=== PATIENT | male | born 1955 | race Caucasian/White ===

== ENCOUNTER 2017-07-28 11:07 | Observation (INO) | payer OTHER ==
[2017-07-28] VITALS (9 sets, daily range): BP systolic 154–230; BP diastolic 87–124; PULSE 72–96; RESP 14–18; TEMP 97.6–98.2; O2SAT 98–100
[~2017-07-28] VITALS: Ht 177.8 cm; Wt 78.0 kg
[~2017-07-28 11:07] MED LIST: HYDR25TA5 PO; POTA10CA PO; VITA500012 PO
--- NOTE | 2017-07-28 11:23 | PD ---
HPI Chief Complaint: Dizziness Time Seen by Provider: 11:19 Travel History International Travel<30 days: No Contact w/Intl Traveler<30days: No Traveled to known affect area: No History of Present Illness HPI 61-year-old male with PMH of hypertension, CKD, current smoker presents [place] the ED via EMS from [place] for evaluation of hypertension. Patient states he had a scheduled appointment at the [place], was going to discuss going to rehab for recent alcohol abuse. He states that he did not take his hydrochlorothiazide this morning "because I was going to go on the bus." He endorses episodic dizziness over the last "few days." He can identify no alleviating or exacerbating factors. He complains of dull bitemporal headache. He states that he has not taken anything because "the headaches are not that bad." He endorses vision changes, but states he went to the eye doctor yesterday and was told that he needs glasses. He denies chest pain, palpitations, shortness of breath, cough, abdominal pain, nausea, vomiting, changes in bowel habits, dysuria, back pain, lower extremity edema. He endorses heavy drinking over the last month, characterized as "1/2 L of vodka a few times a week." He denies history of chronic alcoholism. He denies suicidal or homicidal ideation. PFSH Past Medical History Cardiovascular Problems: Yes Congestive Heart Failure: Yes Diminished Hearing: No Hypertension: Yes Thyroid Disease: Yes Past Surgical History Abdominal Surgery: Yes (HERNIA REPAIR 2006) Joint Replacement: Yes (RIGHT HIP SURGERY FROM FX) Other Surgery: Yes (RIGHT AND LEFT KNEE ARTHROSCOPY) Social History Alcohol Use: Yes Tobacco Use: Yes Substance Use: No (DENIES) Allergies-Medications (Allergen,Severity, Reaction): Coded Allergies: No Known Allergies (Verified Allergy, Unknown, 07/28/17) Reported Meds & Prescriptions Reported Meds & Active Scripts Active Reported Allopurinol 100 Mg Tab 100 Mg PO DAILY [Potassium Otc ] PO DAILY Hydrochlorothiazide 25 Mg Tab 25 Mg PO DAILY Review of Systems Except as stated in HPI: all other systems reviewed are Neg Physical Exam Narrative GENERAL: Well-nourished, well-developed white male no acute distress. SKIN: Focused skin assessment warm/dry. Abrasion of the left toe. Chronic venous stasis changes of bilateral lower extremities. HEAD: Normocephalic. Atraumatic. EYES: No scleral icterus. No injection or drainage. PERRLA. EOMI. NECK: Supple, trachea midline. No JVD or lymphadenopathy. CARDIOVASCULAR: Regular rate and rhythm without murmurs, gallops, or rubs. RESPIRATORY: Breath sounds clear and equal bilaterally. No accessory muscle use. GASTROINTESTINAL: Abdomen soft, non-tender, nondistended. Active bowel sounds. MUSCULOSKELETAL: No cyanosis, or edema. Moves extremities spontaneously. NEUROLOGICAL: Awake and alert. Cranial nerves II through XII intact. Motor and sensory grossly within normal limits. Five out of 5 muscle strength in all muscle groups. Normal speech. BACK: Nontender without obvious deformity. No CVA tenderness. Data Data Last Documented VS Vital Signs Date Time Temp Pulse Resp B/P (MAP) Pulse Ox O2 Delivery O2 Flow Rate FiO2 07/28/17 15:41 74 14 154/87 (109) 99 Room Air Orders Orders Electrocardiogram (07/28/17 11:19) Complete Blood Count With Diff (07/28/17 11:19) Comprehensive Metabolic Panel (07/28/17 11:19) Ckmb (Isoenzyme) Profile (07/28/17 11:19) Troponin I (07/28/17 11:19) Act Partial Throm Time (Ptt) (07/28/17 11:19) Prothrombin Time / Inr (Pt) (07/28/17 11:19) Urinalysis - C+S If Indicated (07/28/17 11:19) Chest, Single Ap (07/28/17 11:19) Ct Brain W/O Iv Contrast(Rout) (07/28/17 11:19) Ecg Monitoring (07/28/17 11:19) Iv Access Insert/Monitor (07/28/17 11:19) Oximetry (07/28/17 11:19) Sodium Chloride 0.9% Flush (Ns Flush) (07/28/17 11:30) Alcohol (Ethanol) (07/28/17 11:19) Drug Screen, Random Urine (07/28/17 11:19) Metoprolol Tartrate (Lopressor) (07/28/17 11:30) CKMB (07/28/17 11:35) CKMB% (07/28/17 11:35) Labetalol Inj (Trandate Inj) (07/28/17 14:15) Alcohol Withdrawal Asmt-Ciwa ONCE (07/28/17 15:09) Flumazenil Inj (Romazicon Inj) (07/28/17 15:15) Lorazepam (Ativan) (07/28/17 15:15) Lorazepam Inj (Ativan Inj) (07/28/17 15:15) Lorazepam (Ativan) (07/28/17 15:15) Lorazepam Inj (Ativan Inj) (07/28/17 15:15) Lorazepam Inj (Ativan Inj) (07/28/17 15:15) Lorazepam Inj (Ativan Inj) (07/28/17 15:15) Diet Heart Healthy (07/28/17 Dinner) Vital Signs (Adult) JUAN C.Q4H (07/28/17 15:45) Amlodipine (Norvasc) (07/28/17 17:00) Enalaprilat Inj (Vasotec Inj) (07/28/17 15:45) Basic Metabolic Panel (Bmp) (07/29/17 06:00) Case Management Consult (07/28/17 ) Admit Order (Ed Use Only) (07/28/17 15:47) Labs Laboratory Tests Test 07/28/17 11:35 07/28/17 14:16 White Blood Count 8.0 TH/MM3 Red Blood Count 3.93 MIL/MM3 Hemoglobin 12.9 GM/DL Hematocrit 38.2 % Mean Corpuscular Volume 97.4 FL Mean Corpuscular Hemoglobin 32.9 PG Mean Corpuscular Hemoglobin Concent 33.7 % Red Cell Distribution Width 16.0 % Platelet Count 202 TH/MM3 Mean Platelet Volume 8.4 FL Neutrophils (%) (Auto) 84.0 % Lymphocytes (%) (Auto) 9.9 % Monocytes (%) (Auto) 4.9 % Eosinophils (%) (Auto) 0.2 % Basophils (%) (Auto) 1.0 % Neutrophils # (Auto) 6.7 TH/MM3 Lymphocytes # (Auto) 0.8 TH/MM3 Monocytes # (Auto) 0.4 TH/MM3 Eosinophils # (Auto) 0.0 TH/MM3 Basophils # (Auto) 0.1 TH/MM3 CBC Comment DIFF FINAL Differential Comment Prothrombin Time 10.3 SEC Prothromb Time International Ratio 1.0 RATIO Activated Partial Thromboplast Time 24.8 SEC Blood Urea Nitrogen 28 MG/DL Creatinine 2.12 MG/DL Random Glucose 97 MG/DL Total Protein 7.7 GM/DL Albumin 3.9 GM/DL Calcium Level 8.9 MG/DL Alkaline Phosphatase 208 U/L Aspartate Amino Transf (AST/SGOT) 31 U/L Alanine Aminotransferase (ALT/SGPT) 17 U/L Total Bilirubin 1.1 MG/DL Sodium Level 139 MEQ/L Potassium Level 4.2 MEQ/L Chloride Level 107 MEQ/L Carbon Dioxide Level 22.0 MEQ/L Anion Gap 10 MEQ/L Estimat Glomerular Filtration Rate 32 ML/MIN Total Creatine Kinase 139 U/L Creatine Kinase MB 4.5 NG/ML Troponin I LESS THAN 0.02 NG/ML Ethyl Alcohol Level LESS THAN 3 MG/DL Urine Color YELLOW Urine Turbidity CLEAR Urine pH 6.0 Urine Specific [place] 1.014 Urine Protein 100 mg/dL Urine Glucose (UA) NEG mg/dL Urine Ketones NEG mg/dL Urine Occult Blood SMALL Urine Nitrite NEG Urine Bilirubin NEG Urine Urobilinogen LESS THAN 2.0 MG/DL Urine Leukocyte Esterase NEG Urine WBC 3 /hpf Urine Squamous Epithelial Cells 1 /hpf Urine Hyaline Casts 3 /lpf Urine Mucus FEW /lpf Microscopic Urinalysis Comment CULT NOT INDICATED Urine Opiates Screen NEG Urine Barbiturates Screen NEG Urine Amphetamines Screen NEG Urine Benzodiazepines Screen NEG Urine Cocaine Screen POS Urine Cannabinoids Screen POS MDM Medical Decision Making Medical Screen Exam Complete: Yes Emergency Medical Condition: Yes Differential Diagnosis Hypertension versus hypertensive urgency versus ICH versus alcohol withdrawal versus malingering versus other Narrative Course 61-year-old male with PMH of hypertension, CKD, current smoker presents to the ED via [place] for evaluation of hypertension, dizziness. He did not take his HCTZ this morning. He endorses episodic dizziness over the last "few days." He complains of dull bitemporal headache. He states that he has not taken anything because "the headaches are not that bad." He endorses heavy drinking over the last month, characterized as "1/2 L of vodka a few times a week." He denies history of chronic alcoholism. He denies suicidal or homicidal ideation. BP 230/119 on presentation. No focal neuro deficits on exam. Patient was administered daily dose of 25 mg HCTZ at the [place] before transfer. He was administered 25 mg metoprolol p.o. in the ED. EKG rate 82, sinus rhythm. [place] interval 154, QRS 98, QTC 4 2 ms. Normal axis. No acute ST changes. Reviewed by Dr. Fernandez. CXR: No acute disease. Cardiac enzymes negative 1. CT brain negative for acute process. CBC: WBC 8.0. Hemoglobin 12.9. INR 1.0. CMP: BUN 28, creatinine 2.12. Chronic per chart review. No culture indicated of the UA. Tox screen positive for cocaine, cannabinoids. Alcohol less than 3. On recheck blood pressure has not improved significantly. He is administered 20 mg labetalol IV. BP improved to 154/106. On recheck patient states dizziness has not resolved. I discussed observation admission with the patient. During this time we discussed his social situation. I told him that I would place him on CIWA protocol to avoid alcohol withdrawal. Patient states "I do not withdraw from alcohol." I asked him why he was seeking inpatient treatment from the [place] for alcoholism and he is unable to answer this question. Patient reveals to me that he became homeless today. Given his ongoing dizziness couple of hypertension will admit for observation. I spoke with Dr. Edmondson have agrees to accept the patient to the medicine service. Please see medicine notes for disposition. Lisa Wayne Jul 28, 2017 11:23
[2017-07-28] MEDS ORDERED: POTASSIUM OTC PO (11:24)
[2017-07-28] MEDS ORDERED: ALLO100T PO (11:24)
[2017-07-28] MEDS ORDERED: HYDROCHLOROTHIAZIDE 25 MG TAB PO ONE (11:30)
[2017-07-28] MEDS ORDERED: METOPROLOL TARTRATE 25 MG TAB PO ONE (11:30)
[2017-07-28 11:47] LABS: AUTOMATED NEUTROPHIL # 6.7 TH/MM3 (1.8-7.7); BASOPHIL # 0.1 TH/MM3 (0-0.2); EOSINOPHIL % 0.2 % (0.0-4.0); HEMATOCRIT 38.2 % (39.0-51.0); HEMOGLOBIN 12.9 GM/DL (13.0-17.0); LYMPH % 9.9 % (9.0-44.0); LYMPHOCYTE # 0.8 TH/MM3 (1.0-4.8); MEAN CELL VOLUME 97.4 FL (80.0-100.0); MEAN CORPUSCULAR HEMOGLOBIN 32.9 PG (27.0-34.0); MEAN CORPUSCULAR HGB CONC 33.7 % (32.0-36.0); MEAN PLATELET VOLUME 8.4 FL (7.0-11.0); MONO % 4.9 % (0.0-8.0); MONOCYTE # 0.4 TH/MM3 (0-0.9); PLATELET COUNT 202 TH/MM3 (150-450); RED BLOOD COUNT 3.93 MIL/MM3 (4.50-5.90)
[2017-07-28 11:56] LABS: PROTHROMBIN TIME - PATIENT 10.3 SEC (9.8-11.6)
--- NOTE | 2017-07-28 11:57 | RADRPT ---
EXAM DATE/TIME: 07/28/2017 11:29 [facility] COMPARISON: CHEST SINGLE AP, June 21, 2016, 20:25. INDICATIONS : [facility]. MEDICAL HISTORY : None. SURGICAL HISTORY : None. ENCOUNTER: Initial ACUITY: 1 day PAIN SCORE: 0/10 LOCATION: FINDINGS: A single view of the chest demonstrates the lungs to be symmetrically aerated without evidence of mas s, infiltrate or effusion. The cardiomediastinal contours are unremarkable. Osseous structures are intact. CONCLUSION: No acute disease. Shivam Jones MD FACR on July 28, 2017 at 11:54 Board Certified Radiologist. This report was verified electronically.
[2017-07-28 12:08] LABS: ALBUMIN 3.9 GM/DL (3.4-5.0); ALT (GPT) 17 U/L (12-78); AST (GOT) 31 U/L (15-37); BLOOD UREA NITROGEN 28 MG/DL (7-18); CALCIUM 8.9 MG/DL (8.5-10.1); CHLORIDE 107 MEQ/L (98-107); CREATININE 2.12 MG/DL (0.60-1.30); GLOMERULAR FILTRATION RATE 32 ML/MIN (>89); GLUCOSE,RANDOM 97 MG/DL (74-106); SODIUM (NA) 139 MEQ/L (136-145)
[2017-07-28 12:12] LABS: ALKALINE PHOSPHATASE 208 U/L (45-117); TOTAL BILIRUBIN ADULT 1.1 MG/DL (0.2-1.0); TOTAL PROTEIN 7.7 GM/DL (6.4-8.2); TROPONIN I LESS THAN 0.02 NG/ML (0.02-0.05)
--- NOTE | 2017-07-28 12:51 | RADRPT ---
EXAM DATE/TIME: 07/28/2017 12:31 [facility] COMPARISON: CT BRAIN W/O CONTRAST, June 30, 2017, 0:51. INDICATIONS : Dizziness, hypertension, blurred vision. RADIATION DOSE: 36.70 CTDIvol (mGy) MEDICAL HISTORY : Hypertension. Cardiovascular disease Congestive heart failure. SURGICAL HISTORY : None. ENCOUNTER: Initial ACUITY: 1 week PAIN SCALE: 2/10 LOCATION: Bilateral cranial TECHNIQUE: Multiple contiguous axial images were obtained of the head. Using automated exposure control and adj ustment of the mA and/or kV according to patient size, radiation dose was kept as low as reasonably a chievable to obtain optimal diagnostic quality images. DICOM format image data is available electro nically for review and comparison. FINDINGS: CEREBRUM: The ventricles are normal for age. No evidence of midline shift, mass lesion, hemorrhage or acute in farction. No extra-axial fluid collections are seen. POSTERIOR FOSSA: The cerebellum and brainstem are intact. The 4th ventricle is midline. The cerebellopontine angle i s unremarkable. EXTRACRANIAL: The visualized portion of the orbits is intact. SKULL: The calvaria is intact. No evidence of skull fracture. CONCLUSION: Negative for an acute process. Shivam Jones MD FACR on July 28, 2017 at 12:48 Board Certified Radiologist. This report was verified electronically.
[2017-07-28] MEDS: SODIUM CHLORIDE 0.9% FLUSH 10 ML FLUSH IVF PRN (14:05)
[2017-07-28] MEDS ORDERED: LABETALOL HCL 100 MG/20 ML VIAL IV PUSH ONE (14:15)
[2017-07-28 14:57] LABS: BILIRUBIN, URINE NEG (NEG); BLOOD, URINE SMALL (NEG); GLUCOSE,URINE NEG (NEG); HYALINE CAST, URINE 3 /lpf (RARE); KETONE, URINE NEG (NEG); MUCUS URINE FEW /lpf (OCC); NITRITE,URINE NEG (NEG); SQUAMOUS EPITHELIAL CELL URINE 1 /hpf (0-5); URINE COLOR YELLOW (YELLW/STRAW); URINE LEUKOCYTE ESTERASE NEG (NEG)
[2017-07-28] MEDS ORDERED: LORazepam 1 MG TAB PO PRN (15:15)
[2017-07-28] MEDS ORDERED: LORazepam 2 MG TAB PO PRN (15:15)
[2017-07-28] MEDS ORDERED: FLUMAZENIL 0.5 MG/5 ML VIAL IV PUSH PRN (15:15)
[2017-07-28] MEDS ORDERED: LORazepam 2 MG/ML VIAL IV PUSH PRN ×4 (15:15)
[2017-07-28] MEDS ORDERED: ENALAPRILAT 1.25 MG/ML VIAL IV PUSH PRN (15:45)
[2017-07-28] MEDS ORDERED: amLODIPine BESYLATE 5 MG TAB PO SCH (17:00)
--- NOTE | 2017-07-28 18:21 | HHI.HP ---
[facility] Phys[facility] Admission Diagnosis Hypertension, dizziness Diagnoses: (1) Hypertensive urgency Diagnosis: Principal Chief Complaint: ' my blood pressure is high'. Travel History International Travel<30 Days: No Contact w/Intl Traveler <30 Da: No Traveled to Known Affected Are: No History of Present Illness patient is a 61 y/o male with history of hypertension who was sent to ER from [place] because of elevated blood pressure. he says that he's taking his BP meds. and he was supposed to start a new medication but he hasn't filled it yet. this morning he had some dizziness and blurred vision. he was seen at [place] and because of elevated blood pressure he was sent to the hospital. he denies any chest pain , sob or headache. Review of Systems Constitutional: COMPLAINS OF: Dizziness, DENIES: Fever, Weight loss, Chills, Night Sweats Eyes: COMPLAINS OF: Blurred vision, DENIES: Diplopia, Vision loss, Double Vision Ears, nose, mouth, throat: DENIES: Tinnitus, Vertigo, Throat pain, Epistaxis Respiratory: DENIES: Apneas, Cough, Snoring, Wheezing, Hemoptysis, Sputum production, Shortness of breath Cardiovascular: DENIES: Chest pain, Palpitations, Syncope, Dyspnea on Exertion , PND, Lower Extremity Edema, Orthopnea, Claudication Gastrointestinal: DENIES: Abdominal pain, Black stools, Bloody stools, Constipation, Diarrhea, Nausea, Vomiting, Difficulty Swallowing, Anorexia Genitourinary: DENIES: Urinary frequency, Urgency, Hematuria, Dysuria Musculoskeletal: DENIES: Joint pain, Muscle aches, Stiffness, Joint Swelling Integumentary: DENIES: Rash Neurologic: DENIES: Abnormal gait, Headache, Localized weakness, Paresthesias, Seizures, Speech Problems, Tremor, Poor Balance Psychiatric: DENIES: Anxiety, Confusion, Mood changes, Depression, Hallucinations, Agitation, Suicidal Ideation, Homicidal Ideation, Delusions Past Family Social History Past Medical History hypertension Past Surgical History hip surgery. Reported Medications HCTZ/ potassium/ allopurinol. Allergies: Coded Allergies: No Known Allergies (Verified Allergy, Unknown, 07/28/17) Active Ordered Medications Inpatient Medications Amlodipine Besylate (Norvasc) 5 mg DAILY PO Last administered on 07/28/17at 17: 06; Start 07/28/17 at 17:00 Enalaprilat (Vasotec Inj) 1.25 mg Q8H PRN IV PUSH SBP> OR = 180, DBP> OR = 100 ; Start 07/28/17 at 15:45 Flumazenil (Romazicon Inj) 0.2 mg Q1M PRN IV PUSH SEE LABEL COMMENTS; Start at 15:15 Labetalol HCl (Trandate Inj) 20 mg ONCE ONCE IV PUSH Last administered on 07/28at 14:05; Start 07/28/17 at 14:15; Stop 07/28/17 at 14:16; Status DC Lorazepam (Ativan Inj) 2 mg Q15M PRN IV PUSH CIWA > 20; Start 07/28/17 at 15:15 Lorazepam (Ativan) 2 mg Q2H PRN PO CIWA 11-14; Start 07/28/17 at 15:15 Metoprolol Tartrate (Lopressor) 25 mg ONCE ONCE PO Last administered on at 11:28; Start 07/28/17 at 11:30; Stop 07/28/17 at 11:31; Status DC Sodium Chloride (NS Flush) 2 ml UNSCH PRN IVF FLUSH AFTER USING IV ACCESS Last administered on 07/28/17at 14:05; Start 07/28/17 at 11:30 Family History heart attack in father. Social History smokes less than half a pack a day- drinks daily. Physical Exam Vital Signs Vital Signs Date Time Temp Pulse Resp B/P (MAP) Pulse Ox O2 Delivery O2 Flow Rate FiO2 07/28/17 17:04 98.0 80 18 178/95 (122) 100 07/28/17 16:24 (109) 07/28/17 15:41 74 14 154/87 (109) 99 Room Air 07/28/17 14:39 80 17 154/106 (122) 100 07/28/17 14:00 96 193/124 (147) 07/28/17 12:49 79 209/115 (146) 07/28/17 11:25 (156) Room Air 07/28/17 11:16 82 16 230/119 (156) 99 Room Air 07/28/17 11:14 85 16 100 Room Air Physical Exam GENERAL: This is a well-nourished, well-developed patient, in no apparent distress. SKIN: No rashes, ecchymoses or lesions. Cool and dry. HEAD: Atraumatic. Normocephalic. No temporal or scalp tenderness. EYES: Pupils equal round and reactive. Extraocular motions intact. No scleral icterus. No injection or drainage. ENT: Nose without bleeding, purulent drainage or septal hematoma. Throat without erythema, tonsillar hypertrophy or exudate. Uvula midline. Airway patent. NECK: Trachea midline. No JVD or lymphadenopathy. Supple, nontender, no meningeal signs. CARDIOVASCULAR: Regular rate and rhythm without murmurs, gallops, or rubs. RESPIRATORY: Clear to auscultation. Breath sounds equal bilaterally. No wheezes , rales, or rhonchi. GASTROINTESTINAL: Abdomen soft, non-tender, nondistended. No hepato-splenomegaly , or palpable masses. No guarding. MUSCULOSKELETAL: Extremities without clubbing, cyanosis, or edema. No joint tenderness, effusion, or edema noted. No calf tenderness. Negative Homans sign bilaterally. NEUROLOGICAL: Awake and alert. Cranial nerves II through XII intact. Motor and sensory grossly within normal limits. Five out of 5 muscle strength in all muscle groups. Normal speech. Laboratory Laboratory Tests Test 07/28/17 11:35 07/28/17 14:16 White Blood Count 8.0 Red Blood Count 3.93 Hemoglobin 12.9 Hematocrit 38.2 Mean Corpuscular Volume 97.4 Mean Corpuscular Hemoglobin 32.9 Mean Corpuscular Hemoglobin Concent 33.7 Red Cell Distribution Width 16.0 Platelet Count 202 Mean Platelet Volume 8.4 Neutrophils (%) (Auto) 84.0 Lymphocytes (%) (Auto) 9.9 Monocytes (%) (Auto) 4.9 Eosinophils (%) (Auto) 0.2 Basophils (%) (Auto) 1.0 Neutrophils # (Auto) 6.7 Lymphocytes # (Auto) 0.8 Monocytes # (Auto) 0.4 Eosinophils # (Auto) 0.0 Basophils # (Auto) 0.1 CBC Comment DIFF FINAL Differential Comment Prothrombin Time 10.3 Prothromb Time International Ratio 1.0 Activated Partial Thromboplast Time 24.8 Blood Urea Nitrogen 28 Creatinine 2.12 Random Glucose 97 Total Protein 7.7 Albumin 3.9 Calcium Level 8.9 Alkaline Phosphatase 208 Aspartate Amino Transf (AST/SGOT) 31 Alanine Aminotransferase (ALT/SGPT) 17 Total Bilirubin 1.1 Sodium Level 139 Potassium Level 4.2 Chloride Level 107 Carbon Dioxide Level 22.0 Anion Gap 10 Estimat Glomerular Filtration Rate 32 Total Creatine Kinase 139 Creatine Kinase MB 4.5 Troponin I LESS THAN 0.02 Ethyl Alcohol Level LESS THAN 3 Urine Color YELLOW Urine Turbidity CLEAR Urine pH 6.0 Urine Specific [place] 1.014 Urine Protein 100 Urine Glucose (UA) NEG Urine Ketones NEG Urine Occult Blood SMALL Urine Nitrite NEG Urine Bilirubin NEG Urine Urobilinogen LESS THAN 2.0 Urine Leukocyte Esterase NEG Urine WBC 3 Urine Squamous Epithelial Cells 1 Urine Hyaline Casts 3 Urine Mucus FEW Microscopic Urinalysis Comment CULT NOT INDICATED Urine Opiates Screen NEG Urine Barbiturates Screen NEG Urine Amphetamines Screen NEG Urine Benzodiazepines Screen NEG Urine Cocaine Screen POS Urine Cannabinoids Screen POS Result Diagram: 07/28/17 1135 07/28/17 1135 Imaging Last Impressions Head CT 07/28/17 1119 Signed Impressions: Service Date/Time: Friday, July 28, 2017 12:31 - CONCLUSION: Negative for an acute process. Shivam Jones MD FACR Chest X-Ray 07/28/17 1119 Signed Impressions: Service Date/Time: Friday, July 28, 2017 11:29 - CONCLUSION: No acute disease. Shivam Jones MD FACR EKG; sinus rhythm with no acute St-T changes. Caprini VTE Risk Assessment Caprini VTE Risk Assessment: Mod/High Risk (score >= 2) Caprini Risk Assessment Model Point Value = 1 Point Value = 2 Point Value = 3 Point Value = 5 Age 41-60 Minor surgery BMI > 25 kg/m2 Swollen legs Varicose veins or History of unexplained or recurrent spontaneous Oral contraceptives or hormone replacement Sepsis (< 1 month) Serious lung disease, including pneumonia (< 1 month) Abnormal pulmonary function Acute myocardial infarction Congestive heart failure (< 1 month) History of inflammatory bowel disease Medical patient at bed rest Age 61-74 Arthroscopic surgery Major open surgery (> 45 min) Laparoscopic surgery (> 45 min) Malignancy Confined to bed (> 72 hours) Immobilizing plaster cast Central venous access Age >= 75 History of VTE Family history of VTE Factor V Leiden Prothrombin 00100M Lupus anticoagulant Anticardiolipin antibodies Elevated serum homocysteine Heparin-induced thrombocytopenia Other congenital or acquired thrombophilia Stroke (< 1 month) Elective arthroplasty Hip, pelvis, or leg fracture Acute spinal cord injury (< 1 month) Prophylaxis Regimen Total Risk Factor Score Risk Level Prophylaxis Regimen 0-1 Low Early ambulation 2 Moderate Order ONE of the following: *Sequential Compression Device (SCD) *Heparin 5000 units SQ BID 3-4 Higher Order ONE of the following medications: *Heparin 5000 units SQ TID *Enoxaparin/Lovenox 40 mg SQ daily (WT < 150 kg, CrCl > 30 mL/min) *Enoxaparin/Lovenox 30 mg SQ daily (WT < 150 kg, CrCl > 10-29 mL/min) *Enoxaparin/Lovenox 30 mg SQ BID (WT < 150 kg, CrCl > 30 mL/min) AND/OR *Sequential Compression Device (SCD) 5 or more Highest Order ONE of the following medications: *Heparin 5000 units SQ TID (Preferred with Epidurals) *Enoxaparin/Lovenox 40 mg SQ daily (WT < 150 kg, CrCl > 30 mL/min) *Enoxaparin/Lovenox 30 mg SQ daily (WT < 150 kg, CrCl > 10-29 mL/min) *Enoxaparin/Lovenox 30 mg SQ BID (WT < 150 kg, CrCl > 30 mL/min) AND *Sequential Compression Device (SCD) Assessment and Plan Assessment and Plan A/P - hypertensive urgency will start on Amlodipine - Vasotec prn-- will continue to monitor and adjust the regimen as needed. -polysubstance abuse;history of alcohol abuse and positive toxicology for cocaine and cannabinoids- ; start on CIWA protocol- thiamine and multivitamin- -CKD- at his baseline- will monitor. -DVT prophylaxis with subq Heparin. Discussed Condition With ER and the patient. Nikhil Vasquez MD Jul 28, 2017 18:21
[2017-07-28] MEDS: HEPARIN SODIUM - SQ 10,000 UNITS/ML VIAL SQ SCH (20:34)
[2017-07-28] MEDS ORDERED: cloNIDine HCL 0.1 MG TAB PO ONE (22:45)
[2017-07-29 01:34] VITALS: BP 135/67; PULSE 68; RESP 16; O2SAT 100
[2017-07-29 03:41] VITALS: BP 144/73; PULSE 73; RESP 16; TEMP 98.5; O2SAT 100
[2017-07-29 04:43] LABS: BICARBONATE 27.4 MEQ/L (21.0-32.0); CALCIUM 8.3 MG/DL (8.5-10.1)
[2017-07-29 08:11] VITALS: BP 174/94; PULSE 69; RESP 20; TEMP 98.2; O2SAT 95
[2017-07-29] MEDS ORDERED: MULTIVITAMIN TAB PO SCH (09:00)
[2017-07-29] MEDS ORDERED: amLODIPine BESYLATE 5 MG TAB PO SCH (09:00)
[2017-07-29] MEDS ORDERED: ALLOPURINOL 100 MG TAB PO SCH (09:00)
[2017-07-29] MEDS ORDERED: THIAMINE HCL 100 MG TAB PO SCH (09:00)
--- NOTE | 2017-07-29 09:00 | HHI.PR ---
Subjective Remarks in no acute distress. denies chest pain, headache. no new complaints. BP trend noted. Objective Vitals Vital Signs Date Time Temp Pulse Resp B/P (MAP) Pulse Ox O2 Delivery O2 Flow Rate FiO2 07/29/17 08:11 98.2 69 20 174/94 (120) 95 07/29/17 03:41 98.5 73 16 144/73 (96) 100 07/29/17 01:34 68 16 135/67 (89) 100 07/28/17 23:40 97.6 75 18 188/94 (125) 100 07/28/17 20:01 98.2 77 18 182/98 (126) 98 07/28/17 18:13 72 188/96 (126) 07/28/17 17:04 98.0 80 18 178/95 (122) 100 07/28/17 16:24 (109) 07/28/17 15:41 74 14 154/87 (109) 99 Room Air 07/28/17 14:39 80 17 154/106 (122) 100 07/28/17 14:00 96 193/124 (147) 07/28/17 12:49 79 209/115 (146) 07/28/17 11:25 (156) Room Air 07/28/17 11:16 82 16 230/119 (156) 99 Room Air 07/28/17 11:14 85 16 100 Room Air I/O 07/28/17 07/28/17 07/28/17 07/29/17 07/29/17 07/29/17 07:00 15:00 23:00 07:00 15:00 23:00 Output Total 200 ml Balance -200 ml Output Urine Total 200 ml # Voids 1 Result Diagram: 07/28/17 1135 07/29/17 0352 Imaging Last Impressions Head CT 07/28/17 1119 Signed Impressions: Service Date/Time: Friday, July 28, 2017 12:31 - CONCLUSION: Negative for an acute process. Shivam Jones MD FACR Chest X-Ray 07/28/17 1119 Signed Impressions: Service Date/Time: Friday, July 28, 2017 11:29 - CONCLUSION: No acute disease. Shivam Jones MD FACR Objective Remarks GENERAL: This is a well-nourished, well-developed patient, in no apparent distress. CARDIOVASCULAR: Regular rate and regular rhythm without murmurs, gallops, or rubs. RESPIRATORY: Clear to auscultation. Breath sounds equal bilaterally. No wheezes , rales, or rhonchi. GASTROINTESTINAL: Abdomen soft, non-tender, nondistended. Normal, active bowel sounds MUSCULOSKELETAL: Extremities without clubbing, cyanosis, or edema. NEURO: Alert & Oriented x4 to person, place, time, situation. Moves all ext x4 Medications and IVs Inpatient Medications Allopurinol (Zyloprim) 100 mg DAILY PO ; Start 07/29/17 at 09:00 Amlodipine Besylate (Norvasc) 5 mg DAILY PO Last administered on 07/28/17at 17: 06; Start 07/28/17 at 17:00 Clonidine (Catapres) 0.1 mg ONCE ONCE PO Last administered on 07/28/17at 23:26 ; Start 07/28/17 at 22:45; Stop 07/28/17 at 22:46; Status DC Enalaprilat (Vasotec Inj) 1.25 mg Q8H PRN IV PUSH SBP> OR = 180, DBP> OR = 100 Last administered on 07/28/17at 18:57; Start 07/28/17 at 15:45 Flumazenil (Romazicon Inj) 0.2 mg Q1M PRN IV PUSH SEE LABEL COMMENTS; Start at 15:15 Heparin Sodium (Porcine) (Heparin Inj) 5,000 units Q12HR SQ Last administered on 07/28/17at 20:34; Start 07/28/17 at 21:00 Labetalol HCl (Trandate Inj) 20 mg ONCE ONCE IV PUSH Last administered on 07/28at 14:05; Start 07/28/17 at 14:15; Stop 07/28/17 at 14:16; Status DC Lorazepam (Ativan Inj) 2 mg Q15M PRN IV PUSH CIWA > 20; Start 07/28/17 at 15:15 Lorazepam (Ativan) 2 mg Q2H PRN PO CIWA 11-14; Start 07/28/17 at 15:15 Metoprolol Tartrate (Lopressor) 25 mg ONCE ONCE PO Last administered on at 11:28; Start 07/28/17 at 11:30; Stop 07/28/17 at 11:31; Status DC Multivitamins (Theragran) 1 tab DAILY PO ; Start 07/29/17 at 09:00 Sodium Chloride (NS Flush) 2 ml UNSCH PRN IVF FLUSH AFTER USING IV ACCESS Last administered on 07/28/17at 14:05; Start 07/28/17 at 11:30 Thiamine HCl (Vitamin B1) 100 mg DAILY PO ; Start 07/29/17 at 09:00 A/P Problem List: (1) Hypertensive urgency ICD Code: I16.0 - Hypertensive urgency Assessment and Plan A/P - hypertensive urgency- BP overall better- however still not well controlled. increase amlodipine - Vasotec prn-- will continue to monitor and adjust the regimen as needed. -polysubstance abuse;history of alcohol abuse and positive toxicology for cocaine and cannabinoids- ; start on CIWA protocol- thiamine and multivitamin- counselled on alcohol and illicit drug cessation. -CKD- at his baseline- will monitor. -DVT prophylaxis with subq Heparin. Discharge Planning possible discharge later this afternoon- case management to assist with dc planning. f/u; pcp. see med list. Nikhil Edmondson MD Jul 29, 2017 09:00
[2017-07-29] MEDS ORDERED: AMLO10TA2 PO (09:02)
[2017-07-29] MEDS ORDERED: THERTAB15 PO (09:02)
[2017-07-29] MEDS ORDERED: THIA100 PO (09:02)
[2017-07-29] MEDS: HEPARIN SODIUM - SQ 10,000 UNITS/ML VIAL SQ SCH (09:25)
[2017-07-29] MEDS: SODIUM CHLORIDE 0.9% FLUSH 10 ML FLUSH IVF PRN (09:25)
[2017-07-29 12:46] VITALS: BP 142/80; PULSE 76; RESP 16; TEMP 98.2; O2SAT 97
--- NOTE | 2017-07-29 14:50 | HHI.DCPOC ---
Discharge Care Plan Diagnosis: (1) Hypertensive urgency Additional Problems Elevated BP Goals to Promote Your Health * To prevent worsening of your condition and complications * To maintain your health at the optimal level Directions to Meet Your Goals Take your medications as prescribed Follow your dietary instruction Follow activity as directed Keep your appointments as scheduled Take your immunizations and boosters as scheduled If your symptoms worsen call your PCP, if no PCP go to Urgent Care Center or Emergency Room Smoking is Dangerous to Your Health. Avoid second hand smoke Call the 24-hour hour crisis hotline for domestic abuse at Claire Puckett Jul 29, 2017 14:50
[2017-07-29 15:05] VITALS: BP 143/91; PULSE 85; RESP 16; TEMP 97.8; O2SAT 97
--- NOTE | 2017-07-29 15:07 | HHI.PR ---
Addendum to Inpatient Note Addendum Reason: Additional Documentation Additional Information BP in the 140s. Patient seen by Case Management. He has been homeless x 3 years. [facility] as planned. Claire Puckett Jul 29, 2017 15:07
--- NOTE | 2017-07-29 16:43 | EKG ---
Date Performed: 07/28/2017 Time Performed: 11:18:49 PTAGE: 61 years EKG: Sinus rhythm POSSIBLE LEFT ATRIAL ENLARGEMENT Since the PREVIOUS TRACING , no significant change noted BORDERLINE ECG PREVIOUS TRACING 06/21/16 @19.36 DOCTOR: Karly Oscar Interpretating Date/Time 07/29/2017 16:43:34
[2017-07-30] MEDS ORDERED: POTA99TA4 PO (10:35)
== END 2017-07-29 16:51 | disposition home or self-care (01) ==
LOC: NEPE 11:07 → NEDA 15:49 → NEPGCP 16:38
PROVIDERS: ADMIT Internal Medicine; ATTEND Internal Medicine
DX: I16.0 Hypertensive urgency (principal); I13.0 Hypertensive heart and chronic kidney disease with heart failure and stage 1 through stage 4 chronic kidney disease, or unspecified chronic kidney disease; I50.9 Heart failure, unspecified; N18.9 Chronic kidney disease, unspecified; R94.31 Abnormal electrocardiogram [ECG] [EKG]; F10.20 Alcohol dependence, uncomplicated; F17.210 Nicotine dependence, cigarettes, uncomplicated; Z59.0 Homelessness; Z82.49 Family history of ischemic heart disease and other diseases of the circulatory system
CPT/HCPCS: 70450; 71045; 80048; 80053; 80307; 81001; 82550; 82552; 84484; 85025; 85610; 85730; 93005; 96372; 96374; 96375; 99285; G0378; J1644